=== PATIENT | female | born 1980 | race Caucasian/White ===

== ENCOUNTER 2016-06-07 06:50 | Inpatient (IN) | payer SELFPAY ==
[~2016-06-07] VITALS: Ht 177.8 cm; Wt 81.6 kg
--- NOTE | ~2016-06-07 | HP ---
ADMIT: 06/07/2016 RM/LOC: 225 [facility] MR#: [id number] [address] [place] [id number] REAGAN BELLAMY [address] [place] [id number] History and Physical SEX: F AGE: 35 : 1980 DATE OF SERVICE: HISTORY OF PRESENT ILLNESS: The patient is a 35-year-old, 4, para 3-0- 0-3, who presented to Labor and Delivery at 39-1/7th weeks' gestation for scheduled induction of labor at term due to history of rapid delivery with previous inadvertent home delivery due to rapid labor. The patient's has been uncomplicated. At time of admission, the patient was noting somewhat regular contractions. She denied any vaginal bleeding or loss of fluid. LABORATORY DATA: Blood type O positive, antibody screen negative, RPR nonreactive, hep B surface antigen negative, gonorrhea and chlamydia negative, rubella immune, HIV negative. Group B strep negative. PAST MEDICAL HISTORY: Noncontributory. PAST SURGICAL HISTORY: None. CURRENT MEDICATIONS: 1. vitamins daily. 2. Zoloft 25 mg daily. ALLERGIES: NO KNOWN MEDICAL ALLERGIES. FAMILY HISTORY: Mother with cervical cancer. SOCIAL HISTORY: The patient is . She denies any alcohol, tobacco, or drug use. PHYSICAL EXAMINATION: VITAL SIGNS: On admission, vital signs are stable. The patient is afebrile. GENERAL: The patient is alert and oriented, in no acute distress. HEART: Regular rate and rhythm without murmurs, gallops, or rubs. LUNGS: Clear to auscultation bilaterally. ADMIT: 06/07/2016 RM/LOC: 225 [facility] MR#: [id number] [address] [place] [id number] RE[facility] BELLAMY [address] [place] [id number] History and Physical SEX: F AGE: 35 : 1980 ABDOMEN: Soft, nontender, gravid. EXTREMITIES: No edema. No calf tenderness. heart tones are in the 120s with moderate variability and accelerations present. Contractions are irregular. Cervix 6 cm dilated, 70% effaced, and - 1 station. Artificial rupture of membranes was performed for induction of labor and clear fluid was noted at the time of amniotomy. ASSESSMENT AND PLAN: 1. A 35-year-old, 4, para 3-0-0-3 at 39-1/7th weeks' gestation. 2. Scheduled induction of labor at term. We will plan artificial rupture of membranes for induction, and we will augment with Pitocin as needed. Marti Westfall MD/ comfort JOB #: [id number] CC: Marti Westfall, Attending Physician NO FAMILY PHYSICIAN, Family Physician
--- NOTE | ~2016-06-07 | FD ---
ADMIT: 06/07/2016 RM/LOC: 225 [facility] MR#: [id number] [address] [id number] RE[facility]AN BELLAMY [address] [place] [id number] Final Diagnosis SEX: F AGE: 35 : 1980 ADMISSION DATE: 06/07/2016 DISCHARGE DATE: 06/08/2016 FINAL DIAGNOSIS: Intrauterine at term. PROCEDURE: Spontaneous vaginal delivery. Marti Westfall MD/ kristine JOB #: [id number] CC: Marti Westfall MD, Attending Physician NO FAMILY PHYSICIAN, Family Physician
[2016-06-09] MEDS ORDERED: NIPPLECREAM TP (10:31)
[2016-06-09] MEDS ORDERED: ZOLOFT DPS25 MG PO (10:31)
[2016-06-09] MEDS ORDERED: MOTRIN-DPS800 MG PO (10:31)
[2016-06-09] MEDS ORDERED: PRENATAL VIT1 TAB PO (10:31)
--- NOTE | 2016-07-04 09:17 | OR ---
ADMIT: 06/07/2016 RM/LOC: 225 [facility] MR#: [id number] [address] [place] [id number] [facility] BELLAMY [address] [place] [address] Operative/Delivery Room Report SEX: F AGE: 35 : 1980 SURGERY DATE: 06/07/2016 SURGEON: Marti Westfall MD NAME OF PROCEDURE: Spontaneous vaginal delivery. PREOPERATIVE DIAGNOSIS: Intrauterine at 39 and 1/7th weeks' gestation. POSTOPERATIVE DIAGNOSIS: Intrauterine at 39 and 1/7th weeks' gestation. FINDINGS: Liveborn female , scores 8 at 1 minute, 9 at 5 minutes. Weight 8 pounds, 7 ounces. ESTIMATED BLOOD LOSS: 150 mL. ANESTHESIA: None. COMPLICATIONS: None. INDICATIONS FOR PROCEDURE: The patient is a 35-year-old, 5, para 3-0- 1-3, who presented to Labor and Delivery at 39 and 1/7th weeks' gestation for scheduled induction of labor at term secondary to history of rapid labor with home delivery with last . The patient had been noted to be 6 cm dilated on admission and so artificial rupture membranes was performed, and clear fluid was noted. The patient then had Pitocin augmentation of labor and progressed quickly to completely dilated and pushed, bringing the infant's vertex to the perineum. DESCRIPTION OF PROCEDURE: The patient was noted be complete and pushing with ADMIT: 06/07/2016 RM/LOC: 225 [facility] MR#: [id number] [address] [place] [id number] [facility] Namita [address] [place] [phone] Operative/Delivery Room Report SEX: F AGE: 35 : 1980 the infant's vertex at the perineum and patient was in the hands in knees position. The patient was asked to push, the anterior shoulder delivered, the posterior shoulder followed, and the remainder of the delivered without difficulty as well. The patient was then placed in the sitting position, and the was placed on the mother's abdomen where nursing personnel were in attendance. The cord was clamped and cut. Twenty units of Pitocin, placed in the IV bag to firm the uterus. The placenta delivered intact spontaneously. The cervix was examined and was noted to be free of lacerations. The vaginal vault and perineum were examined, and there was noted to be a first degree midline laceration, which was hemostatic and not repaired. The patient tolerated the procedure well. All sponge and needle counts were correct. The patient and recovered in the room in stable condition. Marti Westfall MD/ comfort JOB #: [id number] CC: Marti Westfall, Attending Physician NO FAMILY PHYSICIAN, Family Physician
== END 2016-06-08 15:30 | disposition home or self-care (01) | DRG 775 ==
LOC: 2LDRP 06:50 → BC 06:50 → 2LDRP 06:51 → BC 06-13 08:00
PROVIDERS: ADMIT Obstetrics & Gynecology
DX: O80 Encounter for full-term uncomplicated delivery (principal); Z37.0 Single live birth; Z3A.39 39 weeks gestation of pregnancy